=== PATIENT | male | born 1935 | race Caucasian/White ===

== ENCOUNTER 2018-02-28 07:43 | Day surgery (SDC) | payer OTHER ==
[~2018-02-28] VITALS: Ht 175.3 cm; Wt 78.0 kg
[~2018-02-28 07:43] MED LIST: CLARITIN10 M3 PO; MOBIC7.5 MG PO; PRAVACHOL80 MG PO; ZESTRIL40 MG PO
[2018-02-28 09:10] VITALS: BP 184/87
[2018-02-28 12:00] VITALS: BP 168/81
[2018-02-28 12:47] VITALS: BP 196/86
== END 2018-02-28 12:45 | disposition home or self-care (01) ==
LOC: SDC 07:43
PROC: 08NF3ZZ Release Left Retina, Percutaneous Approach (ICD-10-PCS; principal; 2018-02-28)
PROC: 08B53ZZ Excision of Left Vitreous, Percutaneous Approach (ICD-10-PCS; principal; 2018-02-28)
PROC: 3E0C3GC Introduction of Other Therapeutic Substance into Eye, Percutaneous Approach (ICD-10-PCS; principal; 2018-02-28)
DX: H35.342 Macular cyst, hole, or pseudohole, left eye (principal); H35.372 Puckering of macula, left eye; I10 Essential (primary) hypertension; E11.9 Type 2 diabetes mellitus without complications; Z83.3 Family history of diabetes mellitus
CPT/HCPCS: J0690; J0713